=== PATIENT | female | born 1995 ===

== ENCOUNTER 2017-03-30 20:53 | Emergency (ER) | payer SELFPAY ==
[2017-03-30 21:04] VITALS: BP 99/66; PULSE 99; TEMP 99.3; O2SAT 98; BMI 21.9
[2017-03-30 21:07] VITALS: RESP 18
--- NOTE | 2017-03-30 21:27 | ED PDOC ---
Arrival/HPI <Benji Parks - Last Filed: 03/30/17 22:03> <Luis Angel Koch - Last Filed: 03/30/17 22:06> - General Chief Complaint: ENT Problem Time Seen by Provider: 03/30/17 21:09 - History of Present Illness Narrative History of Present Illness (Text): 03/30/17 21:31 22 year old female with a past medical history of tonsillitis is presenting to the ED with a one day history of throat pain. The patient noticed a pain in her throat last night as she was lying down to go to bed. She did not eat or drink today due to difficulty swallowing. She states that she was nauseous last night but is not currently. She is experiencing pain in her ears b/l. Denies fevers, chills, difficulty breathing, sob, cough, drooling or voice changes. (Benji Parks) Past Medical History - Provider Review Nursing Documentation Reviewed: Yes - Cardiac Hx Cardiac Disorders: No - Pulmonary Hx Respiratory Disorders: No - Neurological Hx Neurological Disorder: No - HEENT Hx HEENT Disorder: No - Renal Hx Renal Disorder: No - Endocrine/Metabolic Hx Endocrine Disorders: No - Hematological/Oncological Hx Blood Disorders: No - Integumentary Hx Dermatological Disorder: No - Musculoskeletal/Rheumatological Hx Musculoskeletal Disorders: No - Gastrointestinal Hx Gastrointestinal Disorders: No - Genitourinary/Gynecological Hx Genitourinary Disorders: No - Psychiatric Hx Psychophysiologic Disorder: No Hx Substance Use: No - Anesthesia Hx Anesthesia: Yes <Benji Parks - Last Filed: 03/30/17 22:03> Family/Social History - Physician Review Nursing Documentation Reviewed: Yes Family/Social History: No Known Family HX Smoking Status: Never Smoked Hx Alcohol Use: No Hx Substance Use: No <Benji Parks - Last Filed: 03/30/17 22:03> Allergies/Home Meds <Benji Parks - Last Filed: 03/30/17 22:03> <Luis Angel Koch - Last Filed: 03/30/17 22:06> Allergies/Adverse Reactions: Allergies No Known Allergies Allergy (Verified 03/30/17 21:04) Home Medications: Home Meds Medication Instructions Recorded Confirmed No Known Home Med 03/30/17 03/30/17 Review of Systems - Review of Systems Constitutional: absent: Fevers ENT: Tinnitus, Sore Throat (b/l tonsillar exudates). absent: Hearing Changes, Voice Changes, Rhinorrhea, Sinus Congestion Respiratory: absent: SOB, Cough, Wheezing Gastrointestinal: Nausea. absent: Abdominal Pain, Vomiting Musculoskeletal: absent: Arthralgias, Neck Pain Skin: absent: Rash Neurological: Headache. absent: Dizziness, Speech Changes Endocrine: absent: Diaphoresis Hemo/Lymphatic: Adenopathy (swollen tonsils) Psychiatric: Normal <Benji Parks - Last Filed: 03/30/17 22:03> Physical Exam Vital Signs Reviewed: Yes Temperature: Afebrile Blood Pressure: Hypotensive Pulse: Tachycardic (HR in 84 on exam) Respiratory Rate: Normal Appearance: Positive for: Well-Appearing, Non-Toxic, Comfortable Pain Distress: None Mental Status: Positive for: Alert and Oriented X 3 - Systems Exam Head: Present: Atraumatic, Normocephalic Extroacular Muscles: Present: EOMI Conjunctiva: Present: Normal Ears: Present: Normal, NORMAL TM. No: TM Bulging, Fluid Mouth: Present: Moist Mucous Membranes, Normal Tounge, Normal Teeth. No: Drooling Pharnyx: Present: EXUDATE, TONSILS ENLARGED. No: Peritonsilar Swelling, Uvular Deviation (uvula midline), Muffled/Hoarse Voice, Strider, Soft Palate/Uvular Edema Nose (External): Present: Atraumatic Neck: Present: Normal Range of Motion, Trachea Midline. No: Meningeal Signs Respiratory/Chest: Present: Clear to Auscultation. No: Good Air Exchange, Respiratory Distress, Accessory Muscle Use, Wheezes, Tachypneic Cardiovascular: Present: Regular Rate and Rhythm, Normal S1, S2 Abdomen: No: Tenderness, Distention, Peritoneal Signs Neurological: Present: GCS=15 Skin: Present: Warm, Dry, Normal Color. No: Rashes Lymphatic: Present: Cervical Adenopathy Psychiatric: Present: Alert, Oriented x 3, Normal Insight, Normal Concentration <Benji Parks - Last Filed: 03/30/17 22:03> Medical Decision Making <Benji Parks - Last Filed: 03/30/17 22:03> - Lab Interpretations I have reviewed the lab results: Yes <Luis Angel Koch - Last Filed: 03/30/17 22:06> ED Course and Treatment: 03/30/17 21:59 Pharyngitis with b/l tonsilar exudates - Throat cultures - r/o strep vs gonorrhea vs chlamydia - Bicillin 1,200,000 units IM (Benji Parks) 03/30/17 22:04 In agreement with resident note, which includes further HPI details. Patient was seen and evaluated with resident, came up with plan and treatment together. (Luis Angel Koch) - Medication Orders Current Medication Orders: Discontinued Medications Penicillin G Benzathine (Bicillin L-A Inj) 1,200,000 units IM STAT STA PRN Reason: Protocol Stop: 03/30/17 21:31 Last Admin: 03/30/17 21:59 Dose: 1,200,000 units <Benji Parks - Last Filed: 03/30/17 22:03> - PA / [employer]ER / Resident Statement MD/DO has reviewed & agrees with the documentation as recorded. MD/DO has examined the patient and agrees with the treatment plan. - Scribe Statement The provider has reviewed the documentation as recorded by the Scribe <Luis Angel Koch - Last Filed: 03/30/17 22:06> - Scribe Statement 03/30/2017 Laurie Dickerson Provider Scribe Attestation: All medical record entries made by the Scribe were at my direction and personally dictated by me. I have reviewed the chart and agree that the record accurately reflects my personal performance of the history, physical exam, medical decision making, and the department course for this patient. I have also personally directed, reviewed, and agree with the discharge instructions and disposition. (Luis Angel Koch) Disposition/Present on Arrival - Present on Arrival Any Indicators Present on Arrival: No History of DVT/PE: No History of Uncontrolled Diabetes: No Urinary Catheter: No History of Decub. Ulcer: No History Surgical Site Infection Following: None - Disposition Have Diagnosis and Disposition been Completed?: Yes Disposition Time: 21:45 Patient Plan: Discharge <Benji Parks - Last Filed: 03/30/17 22:03> <Luis Angel Koch - Last Filed: 03/30/17 22:06> - Disposition Diagnosis: Pharyngitis Disposition: HOME/ ROUTINE Patient Problems: Current Active Problems Problem Status Onset Pharyngitis Acute Condition: IMPROVED Discharge Instructions (ExitCare): Pharyngitis (ED) Referrals: [facility] [place] [Outside] - Follow up with primary Forms: WORK NOTE, [employer] ([place])
[2017-03-30] MEDS ORDERED: Penicillin G Benzathine 1.2 Mill Unit/2 ml Syr IM STA (21:30)
== END 2017-03-30 22:27 | disposition home or self-care (01) ==
LOC: ED 20:53
DX: J02.9 Acute pharyngitis, unspecified (principal)
CPT/HCPCS: 96372; 99282; J0561